=== PATIENT | male | born 1995 | race Two or more races ===

== ENCOUNTER 2017-05-20 05:30 | Emergency (ER) | payer MEDICAID ==
[~2017-05-20] VITALS: Ht 177.8 cm; Wt 99.8 kg
--- NOTE | 2017-05-20 05:35 | NUR ---
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 NO SOB NOTED. NAD NOTED. NO NVD AT THIS TIME. PT GOWNED AND PLACED ON MONITOR WAITING FOR MD TOLBERT. PER RA PLACED IV ON LEFT AC 20G.
--- NOTE | 2017-05-20 05:36 | NUR ---
PT NOTED WITH REDNESS THROUGHOUT CINTIA UPPER EX, CHEST, FACE AND NECK.
[2017-05-20] MEDS ORDERED: ALBUTEROL FS 2.5 MG/3 ML VIAL.NEB ONE (05:59)
[2017-05-20] MEDS ORDERED: IV NS 0.9% 1,000 ML BAG IV ONE (06:00)
[2017-05-20] MEDS ORDERED: EPINEPHRINE (1:1000) MDV 30 MG/30ML VIAL IM ONE (06:00)
[2017-05-20] MEDS ORDERED: DEXAMETHASONE SOD PHOSPHATE 10 MG/ML VIAL IV ONE (06:00)
[2017-05-20] MEDS ORDERED: ALBUTEROL FS 2.5 MG/3 ML VIAL.NEB NEB ONE (06:00)
[2017-05-20] MEDS ORDERED: FAMOTIDINE/PF INJ 20 MG/2 ML VIAL IV ONE (06:00)
--- NOTE | 2017-05-20 06:00 | NUR ---
RT AT BEDSIDE FOR BREATHING TX
--- NOTE | 2017-05-20 06:24 | NUR ---
ANTOINETTE SUBSIDED, DR. ANG MADE AWARE.
--- NOTE | 2017-05-20 07:03 | NUR ---
REPORT GIVEN TO KACY RENTERIA FOR SARAH.
--- NOTE | 2017-05-20 07:20 | NUR ---
DR. ANG SPEAKING TO PT REGARDING POC,
--- NOTE | 2017-05-20 09:08 | NUR ---
Patient discharged to home in stable condition. Written and verbal after care instructions given. Patient verbalizes understanding of instruction.
--- NOTE | 2017-05-20 09:09 | NUR ---
IV removed. Catheter intact and site benign. Pressure and 4x4 applied to site. No bleeding noted.
[2017-05-20 09:10] VITALS: BP 130/82
== END 2017-05-20 09:12 | disposition home or self-care (01) ==
LOC: ER 05:31
DX: T78.2XXA Anaphylactic shock, unspecified, initial encounter (principal); Y92.89 Other specified places as the place of occurrence of the external cause
CPT/HCPCS: 94640; 96361; 96372; 96374; 96375; 99291; A4606; J7030; Z7610